=== PATIENT | female | born 1980 | race Caucasian/White ===

== ENCOUNTER → 2020-04-15 | Outpatient (CLI) | payer BC, OTHER ==
[2015-10-17 06:16] VITALS: BP 97/61
[~2020-04-15] MED LIST: BACL10TA PO; CYCL-331 PO; HYDR1TAB10 PO; IBUP400T18 PO; LIDO700A4 TD; METH4TAB PO; NAPR-683 PO; ORPH-16 PO; OXYC1TAB20 PO; no home; no home medications
--- NOTE | 2020-04-15 14:48 | RAD ---
EXAM: Pelvic sonogram. HISTORY: Ovarian cyst. Elevated testosterone. TECHNIQUE: Transabdominal sonographic imaging of the pelvis was performed. COMPARISON: None. FINDINGS: The uterus measures 8.7 x 4.6 x 2.7 cm. The endometrial stripe measures 3.5 mm in thickness . The ovaries are normal in size and demonstrate normal blood flow. There is no pelvic free fluid. IMPRESSION: Unremarkable pelvic sonogram. Electronically signed by: Janette Miranda MD (04/15/2020 2:45 PM) [id number]
== END ==
LOC: US 12:44
PROVIDERS: ATTEND Obstetrics & Gynecology
DX: R89.1 Abnormal level of hormones in specimens from other organs, systems and tissues (principal); Z87.898 Personal history of other specified conditions
CPT/HCPCS: 76856